=== PATIENT | female | born 2000 | race Caucasian/White ===

== ENCOUNTER 2021-08-14 00:07 | Emergency (ER) | payer SELFPAY ==
[2021-08-14] MEDS ORDERED: Sodium Chloride 0.9% 2.5 ML Syringe FLUSH PRN (01:15)
[2021-08-14] MEDS ORDERED: Sodium Chloride 0.9% 10 ML Syringe FLUSH PRN (01:15)
[2021-08-14] MEDS ORDERED: Ondansetron 4 MG/2 ML SDV IVPUSH ONE (01:16)
[2021-08-14] MEDS ORDERED: Lactated Ringers 1,000 ML IV ONE (01:16)
[2021-08-14] MEDS ORDERED: Alum Hydro/Mag Hydro/Simeth XS 15 ML, Lidocaine 2% 5 ML PO ONE ×2 (01:16)
[2021-08-14 02:14] LABS: CARBON DIOXIDE,CO2 25.2 mmol/L (21.0-32.0); POTASSIUM,K 3.8 mmol/L (3.5-5.1)
[2021-08-14] MEDS ORDERED: cefOXitin 1 GM in Premix Bag 1 BAG IV ONE (04:10)
[2021-08-14] MEDS ORDERED: Lactated Ringers 1,000 ML IV STA (04:13)
[2021-08-14] MEDS ORDERED: Ertapenem 1 GM in Sodium Chloride 0.9% 50 ML IV ONE (04:52)
== END 2021-08-14 05:13 | disposition left against medical advice (07) ==
LOC: MW.ED 00:07
DX: K35.80 Unspecified acute appendicitis (principal); Z20.822 Contact with and (suspected) exposure to COVID-19
CPT/HCPCS: 36415; 74177; 80053; 81025; 83690; 85025; 96361; 96374; 96375; 99284; A9270; J1335; J2405; J3490; J7120; 99285

== ENCOUNTER 2021-08-14 12:52 | Day surgery (SDC) | payer SELFPAY ==
[2021-08-14] MEDS ORDERED: cefOXitin 2 GM in Sodium Chloride 0.9% 100 ML IV ONE (12:59)
[2021-08-14] MEDS ORDERED: cefOXitin 2 GM in Premix Bag 1 BAG IV ONE (13:15)
[2021-08-14] MEDS ORDERED: Lidocaine 2% 5 ML SDV ONE (14:25)
[2021-08-14] MEDS ORDERED: Dexamethasone 4 MG/ML 5 ML MDV ONE (14:25)
[2021-08-14] MEDS ORDERED: Rocuronium 100 MG/10 ML MDV ONE (14:25)
[2021-08-14] MEDS ORDERED: Propofol 200 MG/20 ML SDV ONE (14:25)
[2021-08-14] MEDS ORDERED: Ketorolac 30 MG/ML SDV ONE (14:25)
[2021-08-14] MEDS ORDERED: Ondansetron 4 MG/2 ML SDV ONE (14:25)
[2021-08-14] MEDS ORDERED: Sugammadex Sodium 200 MG/2 ML VIAL ONE (14:25)
[2021-08-14] MEDS ORDERED: fentaNYL 100 MCG/2 ML SDV ONE (14:26)
[2021-08-14] MEDS ORDERED: Lactated Ringers 1,000 ML IV SCH ×2 (14:30→16:15)
[2021-08-14] MEDS ORDERED: Bupivacaine 0.5% 30 ML SDV ONE (14:35)
[2021-08-14] MEDS ORDERED: traMADol 50 MG Tab PO PRN (16:12)
[2021-08-14] MEDS ORDERED: fentaNYL 50 MCG/ML SDV IVPUSH PRN (16:16)
[2021-08-14] MEDS ORDERED: Albuterol 0.083% 2.5 MG/3 ML Neb Soln NEB PRN (16:16)
[2021-08-14] MEDS ORDERED: HYDROmorphone 1 MG/ML Syringe ONE (16:16)
[2021-08-14] MEDS ORDERED: HYDROmorphone 1 MG/ML Syringe IVPUSH PRN (16:16)
[2021-08-14] MEDS ORDERED: Metoclopramide 10 MG/2 ML SDV IVPUSH PRN (16:16)
[2021-08-14] MEDS ORDERED: Ondansetron 4 MG/2 ML SDV IVPUSH PRN (16:16)
[2021-08-14] MEDS ORDERED: Naloxone 0.4 MG/ML SDV IVPUSH PRN (16:16)
[2021-08-14] MEDS ORDERED: Morphine 4 MG/ML VIAL IVPUSH PRN (16:16)
[2021-08-14] MEDS ORDERED: Ondansetron 4 MG/2 ML SDV IVPUSH ONE (18:22)
[2021-08-14] MEDS ORDERED: Ondansetron 4 MG Tab.DIS PO PRN (18:22)
[2021-08-14] MEDS ORDERED: Acetaminophen 500 MG Tab PO PRN (18:57)
[2021-08-14] MEDS: Ibuprofen 400 MG Tab PO PRN (19:22)
[2021-08-15] MEDS: Ibuprofen 400 MG Tab PO PRN (09:31)
== END 2021-08-15 16:00 | disposition home or self-care (01) ==
LOC: MW.ED 12:52 → MW.MS 15:01 → MW.SDS 15:01 → MW.MS 15:02 → MW.SDS 08-15 16:00
PROVIDERS: ATTEND Surgery
DX: K35.30 Acute appendicitis with localized peritonitis, without perforation or gangrene (principal); Z20.822 Contact with and (suspected) exposure to COVID-19; Z01.812 Encounter for preprocedural laboratory examination
CPT/HCPCS: 44970; 87635; 99284; A9270; J0131; J0694; J1100; J1170; J1885; J2405; J2704; J3010; J3490; J7030; J7120; 99285; U0002

== ENCOUNTER 2022-09-08 11:18 | Emergency (ER) | payer SELFPAY ==
[2022-09-08] MEDS ORDERED: Sodium Chloride 0.9% 2.5 ML Syringe FLUSH PRN (11:24)
[2022-09-08] MEDS ORDERED: Sodium Chloride 0.9% 10 ML Syringe FLUSH PRN (11:24)
[2022-09-08 11:51] LABS: APPEARANCE,URINE CLEAR; BILIRUBIN,URINE NEGATIVE (NEGATIVE); COLOR,URINE YELLOW; GLUCOSE,URINE NEGATIVE (NEGATIVE); KETONES,URINE NEGATIVE (NEGATIVE); LEUKOCYTE ESTERASE,URINE NEGATIVE (NEGATIVE); NITRITE,URINE NEGATIVE (NEGATIVE); OCCULT BLOOD,URINE SMALL (NEGATIVE); PROTEIN,URINE NEGATIVE (NEGATIVE); UROBILINOGEN,URINE 0.2 EU/dL (<2.0)
[2022-09-08 11:59] LABS: EPITHELIAL CELLS,URINE OCCASIONAL (NONE-FEW); RBC,URINE 0-3 (0-2/HPF); WBC,URINE 0-2 (0-5/HPF)
[2022-09-08 11:59] LABS: BASOPHILS PERCENT AUTO 0.5 % (0.0-1.5); EOSINOPHILS PERCENT AUTO 0.9 % (0.0-7.0); HEMOGLOBIN 13.2 g/dL (12.0-16.0); LYMPHOCYTES ABSOLUTE AUTO 1.6 K/uL (0.6-2.4); LYMPHOCYTES PERCENT AUTO 37.2 % (16.0-40.0); MEAN CORPUSCULAR HGB CONC 34.7 g/dL (31.0-37.0); MEAN CORPUSCULAR VOLUME 89.2 fL (80.0-98.0); MONOCYTES ABSOLUTE AUTO 0.4 K/uL (0.0-0.8); MONOCYTES PERCENT AUTO 8.2 % (0.0-15.0); NEUTROPHILS ABSOLUTE AUTO 2.4 K/uL (1.4-5.7); NEUTROPHILS PERCENT AUTO 53.2 % (48.0-80.0); NRBC ABSOLUTE 0 K/uL; PLATELET COUNT,PLT 231 K/uL (150-400); RED BLOOD CELL COUNT 4.26 M/uL (4.30-5.90); WHITE BLOOD CELL COUNT,WBC 4.41 K/uL (4.0-11.0)
[2022-09-08 12:00] LABS: BACTERIA,URINE FEW (NEGATIVE)
[2022-09-08 12:30] LABS: A/G RATIO 1.2 (0.9-1.6); ALANINE AMINOTRANSFERASE,ALT 22 IU/L (14-63); ALBUMIN 4.2 g/dL (3.4-5.0); ALKALINE PHOSPHATASE 54 U/L (46-116); ASPARTATE AMNIOTRANSFERASE,AST 11 IU/L (15-37); BILIRUBIN TOTAL 0.6 mg/dL (0.2-1.0); BLOOD UREA NITROGEN,BUN 15 mg/dL (7.0-18.0); CALCIUM 9.1 mg/dL (8.5-10.1); CHLORIDE,CL 105 mmol/L (98-107); CREATININE 0.8 mg/dL (0.6-1.0); EST CRCL DRUG DOSING (CG) 85.76 mL/min; ESTIMATED GFR 105 mL/min (>60); GLUCOSE RANDOM 93 mg/dL (74-106); HCG QUANTITATIVE < 1.0 mIU/mL; POTASSIUM,K 4.6 mmol/L (3.5-5.1); PROTEIN TOTAL,TP 7.6 g/dL (6.4-8.2); SODIUM,NA 139 mmol/L (136-145)
== END 2022-09-08 13:47 | disposition home or self-care (01) ==
LOC: MW.ED 11:18
DX: R07.9 Chest pain, unspecified (principal); R06.02 Shortness of breath; Z20.822 Contact with and (suspected) exposure to COVID-19
CPT/HCPCS: 36415; 71045; 80053; 81001; 83735; 84484; 84702; 85025; 85379; 87635; 93005; 99285; J3490; U0002

== ENCOUNTER 2024-10-18 10:22 | Emergency (ER) | payer BC ==
[2024-10-18 11:00] LABS: BASOPHILS ABSOLUTE AUTO 0.03 K/uL (0.00-0.20); BASOPHILS PERCENT AUTO 0.5 % (0.0-1.0); EOSINOPHILS ABSOLUTE AUTO 0.07 K/uL (0.00-0.45); EOSINOPHILS PERCENT AUTO 1.2 % (0.0-6.0); IMMATURE GRAN ABSOLUTE AUTO 0.00 K/uL (0.00-0.05); IMMATURE GRAN PERCENT AUTO 0.0 % (0.0-0.4); LYMPHOCYTES ABSOLUTE AUTO 1.71 K/uL (1.00-4.80); LYMPHOCYTES PERCENT AUTO 29.6 % (24.0-44.0); MEAN PLATELET VOLUME 9.6 fL (9.4-12.3); MONOCYTES ABSOLUTE AUTO 0.30 K/uL (0.00-0.80); MONOCYTES PERCENT AUTO 5.2 % (0.0-8.0); NEUTROPHILS ABSOLUTE AUTO 3.67 K/uL (1.80-7.70); NEUTROPHILS PERCENT AUTO 63.5 % (41.0-71.0); NRBC ABSOLUTE 0.00 K/uL (0.00-0.02); NRBC PERCENT 0.0 /100WBC (0.0-0.2); PLATELET COUNT,PLT 234 K/uL (150-400); RED BLOOD CELL COUNT 4.28 M/uL (4.10-5.30); WHITE BLOOD CELL COUNT,WBC 5.78 K/uL (3.9-11.3)
[2024-10-18 11:21] LABS: APPEARANCE,URINE CLEAR; GLUCOSE,URINE NEGATIVE (NEGATIVE); OCCULT BLOOD,URINE LARGE (NEGATIVE)
[2024-10-18 11:31] LABS: A/G RATIO 1.2 (0.9-1.6); ALANINE AMINOTRANSFERASE,ALT 38.0 IU/L (14-63); ASPARTATE AMNIOTRANSFERASE,AST 18.0 IU/L (15-37); BILIRUBIN TOTAL 0.4 mg/dL (0.2-1.0); BLOOD UREA NITROGEN,BUN 10.0 mg/dL (7.0-18.0); CARBON DIOXIDE,CO2 26.0 mmol/L (21.0-32.0); CHLORIDE,CL 105.0 mmol/L (98-107); CREATININE 0.8 mg/dL (0.6-1.0); EST CRCL DRUG DOSING (CG) 84.28 mL/min; ESTIMATED GFR 104.0 mL/min (>60); GLUCOSE RANDOM 90.0 mg/dL (74-106); HCG QUANTITATIVE 72.0 mIU/mL; POTASSIUM,K 3.9 mmol/L (3.5-5.1); PROTEIN TOTAL,TP 7.4 g/dL (6.4-8.2); SODIUM,NA 141.0 mmol/L (136-145)
[2024-10-18 11:32] LABS: EPITHELIAL CELLS,URINE FEW (NONE-FEW)
== END 2024-10-18 13:00 | disposition home or self-care (01) ==
LOC: MW.ED 10:22
DX: O00.90 Unspecified ectopic pregnancy without intrauterine pregnancy (principal); Z75.3 Unavailability and inaccessibility of health-care facilities
CPT/HCPCS: 36415; 76817; 76817-26; 80053; 81001; 81025; 84702; 85025; 86900; 86901; 99284

== ENCOUNTER 2025-01-07 11:59 | Emergency (ER) | payer BC ==
[2025-01-07 12:26] LABS: BASOPHILS ABSOLUTE AUTO 0.02 K/uL (0.00-0.20); BASOPHILS PERCENT AUTO 0.2 % (0.0-1.0); EOSINOPHILS ABSOLUTE AUTO 0.02 K/uL (0.00-0.45); EOSINOPHILS PERCENT AUTO 0.2 % (0.0-6.0); IMMATURE GRAN ABSOLUTE AUTO 0.01 K/uL (0.00-0.05); IMMATURE GRAN PERCENT AUTO 0.1 % (0.0-0.4); LYMPHOCYTES ABSOLUTE AUTO 1.08 K/uL (1.00-4.80); LYMPHOCYTES PERCENT AUTO 12.3 % (24.0-44.0); MEAN PLATELET VOLUME 9.9 fL (9.4-12.3); MONOCYTES ABSOLUTE AUTO 0.44 K/uL (0.00-0.80); MONOCYTES PERCENT AUTO 5.0 % (0.0-8.0); NEUTROPHILS ABSOLUTE AUTO 7.24 K/uL (1.80-7.70); NEUTROPHILS PERCENT AUTO 82.2 % (41.0-71.0); NRBC ABSOLUTE 0.00 K/uL (0.00-0.02); NRBC PERCENT 0.0 /100WBC (0.0-0.2); PLATELET COUNT,PLT 229 K/uL (150-400); RED BLOOD CELL COUNT 4.00 M/uL (4.10-5.30); WHITE BLOOD CELL COUNT,WBC 8.81 K/uL (3.9-11.3)
[2025-01-07 12:29] LABS: APPEARANCE,URINE CLOUDY; GLUCOSE,URINE NEGATIVE (NEGATIVE); OCCULT BLOOD,URINE NEGATIVE (NEGATIVE)
[2025-01-07 12:45] LABS: SQUAMOUS EPITHELIAL CELLS,UR MODERATE
[2025-01-07 13:21] LABS: A/G RATIO 1.0 (0.9-1.6); ALANINE AMINOTRANSFERASE,ALT 23.0 IU/L (14-63); ASPARTATE AMNIOTRANSFERASE,AST 16.0 IU/L (15-37); BILIRUBIN TOTAL 0.4 mg/dL (0.2-1.0); BLOOD UREA NITROGEN,BUN 11.0 mg/dL (7.0-18.0); CARBON DIOXIDE,CO2 26.0 mmol/L (21.0-32.0); CHLORIDE,CL 101.0 mmol/L (98-107); CREATININE 0.5 mg/dL (0.6-1.0); EST CRCL DRUG DOSING (CG) 134.85 mL/min; GLUCOSE RANDOM 85.0 mg/dL (74-106); POTASSIUM,K 3.7 mmol/L (3.5-5.1); PROTEIN TOTAL,TP 7.9 g/dL (6.4-8.2); SODIUM,NA 137.0 mmol/L (136-145)
[2025-01-07 13:29] LABS: ESTIMATED GFR 133.0 mL/min (>60)
[2025-01-07] MEDS: cefTRIAXone 1 GM in Water For Injection, Sterile 10 ML IVPUSH ONE (13:53)
== END 2025-01-07 14:16 | disposition home or self-care (01) ==
LOC: MW.ED 11:59
DX: O23.41 Unspecified infection of urinary tract in pregnancy, first trimester (principal); N39.0 Urinary tract infection, site not specified; Z90.49 Acquired absence of other specified parts of digestive tract; Z79.899 Other long term (current) drug therapy; Z75.3 Unavailability and inaccessibility of health-care facilities; Z3A.11 11 weeks gestation of pregnancy
CPT/HCPCS: 36415; 76801; 80053; 81001; 84702; 85025; 87086; 96361; 96374; 99284; J0696; J7030; 99283